=== PATIENT | female | born 1955 | race Two or more races ===

== ENCOUNTER 2016-09-16 19:22 | Emergency (ER) | payer OTHER ==
[~2016-09-16] VITALS: Ht 167.6 cm; Wt 75.3 kg
--- NOTE | 2016-09-16 20:20 | NUR ---
PT PRESENTED TO THE ER WITH A C/O RLE/RT ANKLE EDEMA. PT IS ALOS C/O THAT HER BUE HAND WERE SWOLLEN TOO. PT HAD TO REMOVE ALL HER RINGS. PT STATED THE SHE HAS SOME DISCOMFORT DOWN THE RT ARM.
--- NOTE | 2016-09-16 21:26 | NUR ---
CALLED RADIOLOGY RE: VENOUS DUPLEX. TECH IS ON HER WAY.
[2016-09-16 22:29] VITALS: BP 160/82
== END 2016-09-16 22:29 | disposition home or self-care (01) ==
LOC: ER 19:22
DX: I80.3 Phlebitis and thrombophlebitis of lower extremities, unspecified (principal); I83.91 Asymptomatic varicose veins of right lower extremity; E03.9 Hypothyroidism, unspecified; I10 Essential (primary) hypertension; E11.9 Type 2 diabetes mellitus without complications; I25.2 Old myocardial infarction; Z86.73 Personal history of transient ischemic attack (TIA), and cerebral infarction without residual deficits
CPT/HCPCS: 93971-TC; A4606; Z7610

== ENCOUNTER 2016-09-19 05:19 | Inpatient (IN) | payer OTHER ==
[~2016-09-19] VITALS: Ht 152.4 cm; Wt 77.1 kg
--- NOTE | 2016-09-19 05:25 | NUR ---
TO BED 6 A 61 YO FEMALE BIBRA#88 PT STATES SHE STARTED HVAING CP X 1 HOUR AND STATES SHE HAS COUGH FOR 3 MONTHS. PATIENT IS AAOX4, REPORTING DULL MID AND LEFT STERNAL CHEST PAIN. BREATHING EVEN AND UNLABORED. AFEBRILE. VSS. GOWNED. INITIATED COMFORT MEASURES. PENDING ER MD FINE.
[2016-09-19] MEDS ORDERED: ALBUTEROL FS 2.5 MG/3 ML VIAL.NEB ONE (05:28)
--- NOTE | 2016-09-19 05:28 | NUR ---
DR CARDOZA AT BEDSIDE FOR EVAL.
[2016-09-19] MEDS ORDERED: IPRATROPIUM NEB FS 0.5 MG/2.5 ML AMPUL.NEB ONE (05:29)
[2016-09-19] MEDS ORDERED: DEXAMETHASONE SOD PHOSPHATE 10 MG/ML VIAL IV ONE (05:30)
[2016-09-19] MEDS ORDERED: IPRATROPIUM NEB FS 0.5 MG/2.5 ML AMPUL.NEB NEB ONE (05:30)
[2016-09-19] MEDS ORDERED: ALBUTEROL FS 2.5 MG/3 ML VIAL.NEB NEB ONE (05:30)
[2016-09-19] MEDS ORDERED: DEXAMETHASONE SOD PHOSPHATE 10 MG/ML VIAL ONE (05:33)
--- NOTE | 2016-09-19 05:35 | NUR ---
started a saline lock on the lac g18, blood drawn and sent to lab.
--- NOTE | 2016-09-19 05:35 | NUR ---
butter grader at bedside for cxr.
[2016-09-19 05:43] LABS: WHITE BLOOD COUNT (AUTO) 8.1 K/uL (4.3-11.0)
[2016-09-19] MEDS ORDERED: IV NS 0.9% 250 ML IV ONE (05:43)
[2016-09-19] MEDS ORDERED: IOHEXOL-350 100 ML VIAL IV ONE (05:43)
[2016-09-19 05:44] LABS: BASOPHILS % (AUTO) 0.1 % (0.0-2.0); EOSINOPHILS # (AUTO) 0.1 /CMM (0.0-0.7); EOSINOPHILS % (AUTO) 0.7 % (0.0-6.0); HEMATOCRIT 40 % (33-45); HEMOGLOBIN 13.2 g/dL (11.5-14.8); LYMPHOCYTES # (AUTO) 0.7 /CMM (0.8-4.8); LYMPHOCYTES % (AUTO) 8.9 % (20.0-44.0); MEAN CORPUSCULAR HEMOGLOBIN 29 PG (26.0-33.0); MEAN CORPUSCULAR HGB CONC 33 g/dl (31.0-36.0); MEAN CORPUSCULAR VOLUME 88 fL (82-100); MONOCYTES % (AUTO) 0.3 % (2.0-12.0); NEUTROPHILS # (AUTO) 7.3 /CMM (1.8-8.9); PLATELET COUNT (AUTO) 192 /CMM (150-450); RDW COEFFICIENT OF VARIATION 14.8 (11.5-15.0); RED BLOOD CELL COUNT(AUTO) 4.55 MIL/uL (4.0-5.2)
--- NOTE | 2016-09-19 05:44 | NUR ---
ongoing breathing treatment by rt.
[2016-09-19 05:55] LABS: CREATININE 0.9 mg/dL (0.6-1.3); POTASSIUM 3.8 mmol/L (3.5-5.1)
[2016-09-19 05:58] LABS: INR 0.89 (0.87-1.13); PROTHROMBIN TIME 9.5 SECS (9.5-12.7)
--- NOTE | 2016-09-19 06:08 | NUR ---
patient to ct.
--- NOTE | 2016-09-19 07:18 | NUR ---
Endorsed to Cali JIMÉNEZ for abisai.
[2016-09-19] MEDS ORDERED: METF500T4 PO (07:21)
[2016-09-19] MEDS ORDERED: ATOR40TA PO (07:21)
[2016-09-19] MEDS ORDERED: RIVA10TA PO (07:21)
[2016-09-19] MEDS ORDERED: VALS160T2 PO (07:21)
[2016-09-19] MEDS ORDERED: LEVO75TA7 PO (07:21)
[2016-09-19] MEDS ORDERED: METO-306 PO (07:21)
--- NOTE | 2016-09-19 08:08 | NUR ---
REPORT GIVEN TO GARRY JIMÉNEZ FOR JAMAAL
[2016-09-19] MEDS ORDERED: ASPIRIN 81 MG TAB.CHEW ONE (08:29)
[2016-09-19] MEDS ORDERED: NITROGLYCERIN PACKET 1 GM PACKET ONE (08:29)
[2016-09-19] MEDS ORDERED: NITROGLYCERIN PACKET 1 GM PACKET TD ONE (08:30)
[2016-09-19] MEDS ORDERED: ASPIRIN 81 MG TAB.CHEW PO ONE (08:30)
--- NOTE | 2016-09-19 08:48 | NUR ---
PARCEL POST CLERK NOTES PATIENT RECEIVED FROM E.R. DEPARTMENT VIA [facility], UNDER THE CARE OF DR. ALCANTARA, FOR CHEST PAIN, IN STABLE CONDITION, ALERT AND ORIENTED, DENIES CHEST PAIN AT THIS TIME, SKIN INTACT, ASSESSMENT DONE, ENSURE SAFETY AND COMFORT, NEEDS ATTENDED, CALL LIGHT WITHIN REACH, WILL CONTINUE TO MONITOR.
[2016-09-19 09:00] VITALS: BP 144/101
[2016-09-19] MEDS ORDERED: ZOLPIDEM TARTRATE 5 MG TABLET PO PRN (09:00)
[2016-09-19] MEDS ORDERED: ACETAMINOPHEN ES 500 MG TABLET PO PRN (09:00)
[2016-09-19] MEDS ORDERED: DEXTROSE 50%-WATER 50 ML DISP.SYRIN IV PRN (09:00)
[2016-09-19] MEDS ORDERED: HYDROCODONE/APAP 5/325MG 1 EACH TABLET PO PRN (09:00)
[2016-09-19] MEDS ORDERED: CLONIDINE HCL 0.1 MG TABLET PO PRN (09:00)
[2016-09-19] MEDS: METFORMIN 500 MG TABLET PO SCH ×2 (10:02→17:08)
[2016-09-19] MEDS: ATORVASTATIN 40 MG TABLET PO SCH (10:02)
[2016-09-19] MEDS: VALSARTAN 80 MG TABLET PO SCH (10:02)
[2016-09-19] MEDS: METOPROLOL SUCCINATE 50 MG TAB.SR.24H PO SCH (10:02)
[2016-09-19] MEDS: LEVOTHYROXINE SODIUM 75 MCG TABLET PO SCH (10:02)
[2016-09-19] MEDS: BLOOD SUGAR DIAGNOSTIC 1 EACH STRIP VI SCH ×4 (10:03→21:48)
[2016-09-19] MEDS: INSULIN REGULAR, HUMAN 100 UNIT/ML 3 ML VIAL SQ PRN ×3 (10:23→17:08)
[2016-09-19] MEDS ORDERED: VALSARTAN 80 MG TABLET PO SCH (11:30)
[2016-09-19 12:00] VITALS: BP 138/70
[2016-09-19 13:58] LABS: APPEARANCE,URINE CLEAR (CLEAR); BILIRUBIN,URINE NEGATIVE (NEGATIVE); BLOOD, URINE 1+ Ery/uL (NEGATIVE); COLOR,URINE YELLOW (YELLOW); KETONES,URINE NEGATIVE (NEGATIVE); LEUKOCYTE ESTERASE ,URINE NEGATIVE (NEGATIVE); NITRITE, URINE NEGATIVE (NEGATIVE); PROTEIN,URINE NEGATIVE (NEGATIVE); UGLUCOSE NEGATIVE (NEGATIVE); UROBILINOGEN,URINE 0.2 EU/dL (0.2)
[2016-09-19 14:16] LABS: BACTERIA,URINE None seen /HPF (None Seen); SQUAMOUS EPITHELIAL CELL,UR Few /HPF (None Seen); WBC,URINE NONE SEEN /HPF (0-3)
[2016-09-19 16:00] VITALS: BP 140/76
[2016-09-19] MEDS ORDERED: RIVAROXABAN 10 MG TABLET PO SCH (17:00)
--- NOTE | 2016-09-19 18:47 | NUR ---
ELECTRIC RAZOR ASSEMBLER NOTES PATIENT IN BED, NO FURTHER COMPLAINT OF CHEST PAIN, NO DISTRESS NOTED, PATIENT WILL HAVE A STRESS TEST TOMORROW, INSTRUCTED NOT TO DRINK TEA OR CAFFEINE AFTER DINNER, AND WILL BE NPO AFTER MIDNIGHT, NO S/SX OF HYPO OR HYPERGLYCEMIA AT THIS TIME, ATE DINNER AND TOLERATED WELL, RECEIVED ASSISTANCE WITH ADLS, SAFETY MEASURES IN PLACED, CALL LIGHT WITHIN REACH, WILL ENDORSE TO PAINTER DRUM FOR JAMAAL.
--- NOTE | 2016-09-19 19:20 | NUR ---
TELE/RN OPENING NOTES PT AWAKE,SITTING UP IN BED. A/OX4, [place]EN[place] SPEAKING BUT DOES UNDERSTAND TURKISH. ON ROOM AIR, BREATHING EVEN AND UNLABORED. NO S/S OF DISTRESS NOTED. DENIES CHEST PAIN AND SOB AT THIS TIME. ON TELE MONITOR READING SINUS RHYTHM WITH HEART RATE AT 72. PT TO HAVE LEXISCAN IN THE MORNING, CONSENT SIGNED AND FLAGGED IN THE CHART. PT AWARE ABOUT NPO STATUS POST MIDNIGHT AND NO CAFFEINE/TEA THIS EVENING. BED IN LOW/LOCKED POSITION WITH CALL LIGHT IN REACH. BED RAILS UPX2. WILL CONTINUE TO MONITOR
[2016-09-19 20:00] VITALS: BP 138/80
[2016-09-19 20:32] VITALS: BP 138/80
[2016-09-19] MEDS: *INSULIN REGULAR(HUMULIN R)HUM 100 UNIT/ML VIAL SQ PRN (21:49)
--- NOTE | 2016-09-19 21:49 | NUR ---
TELE/RN NOTES BLOOD SUGAR 150. NO INSULIN ADMINISTERED. PT TO BE NPO POST MIDNIGHT FOR DEX IN AM
[2016-09-20] VITALS: BP 129/67
[2016-09-20 04:00] VITALS: BP 146/81
[2016-09-20 04:59] VITALS: BP 146/81
[2016-09-20] MEDS: BLOOD SUGAR DIAGNOSTIC 1 EACH STRIP VI SCH ×2 (06:33→11:56)
[2016-09-20] MEDS: LEVOTHYROXINE SODIUM 75 MCG TABLET PO SCH (06:35)
[2016-09-20] MEDS: INSULIN REGULAR, HUMAN 100 UNIT/ML 3 ML VIAL SQ PRN (06:36)
--- NOTE | 2016-09-20 06:36 | NUR ---
TELE/RN NOTES BLOOD IJKNV=[id number], NO INSULIN COVERAGE AND NON-ADMINISTERED SCHEDULED SYNTHROID. PT NPO.
--- NOTE | 2016-09-20 06:45 | NUR ---
TELE/RN CLOSING NOTES PT AWAKE, ON ROOM AIR, BREATHING EVEN AND UNLABORED. DENIES CHEST PAIN. NO COMPLAINTS OF SOB OR DISTRESS NOTED. ON TELE MONITOR, SINUS RHYTHM WITH HR AT 69. IV TO TO LAC PATENT AND INTACT, FLUSHES WELL. PT NPO FOR LEXISCAN THIS AM. BED IN LOW/LOCKED POSITION, CALL LIGHT IN REACH. BED RAILS UP. MADE PT COMFORTABLE, ALL NEEDS MET AND ATTENDED. WILL ENDORSE TO AM SHIFT JAMAAL.
[2016-09-20 06:57] VITALS: BP 153/85
[2016-09-20 07:08] LABS: CHOLESTEROL 210 mg/dL (<200); HDL CHOLESTEROL 86 mg/dL (40-60); LDL 109 mg/dL (0-99); TRIGLYCERIDES 94 mg/dL (30-150)
--- NOTE | 2016-09-20 07:25 | NUR ---
RN OPEN NOTES RECEIVED REPORT FROM PRODUCTION RECOVERY OPERATOR NURSE. WILL CONTINUE TO MONITOR AND ASSESS PATIENT
[2016-09-20] MEDS ORDERED: REGADENOSON 0.4 MG/5 ML DISP.SYRIN IVP ONE (08:00)
--- NOTE | 2016-09-20 08:40 | NUR ---
PATIENT LEFT THE FLOOR FOR STRESS TEST
[2016-09-20] MEDS: VALSARTAN 80 MG TABLET PO SCH (09:00)
[2016-09-20] MEDS: ATORVASTATIN 40 MG TABLET PO SCH (10:17)
[2016-09-20] MEDS: METOPROLOL SUCCINATE 50 MG TAB.SR.24H PO SCH (10:17)
[2016-09-20] MEDS: METFORMIN 500 MG TABLET PO SCH (10:17)
[2016-09-20 12:00] VITALS: BP 154/59
[2016-09-20] MEDS: *INSULIN REGULAR(HUMULIN R)HUM 100 UNIT/ML VIAL SQ PRN (12:20)
--- NOTE | 2016-09-20 14:26 | NUR ---
PROCESS TREATER NOTES PATIENT DISCHARGE ORDERS RECEIVED FROM DR ALCANTARA AND CARRIED OUT. PATIENT RECEIVED ALL DISCHARGE INFORMATION AND EDUCATION AND ALLOW TIME TO ASK QUESTIONS. PATIENT STARTED THAT SHE HAS NO CONCERNS REGARDING DISCHARGE. NO SIGNS AND SYMPTOMS OF DISTRESS AT TIME OF DISCHARGE. DENIED PAIN. ALL PERSONAL BELONGING WITH PATIENT AT TIME OF DISCHARGE. CONTINUE HOME MEDICATION AND NO NEW PRESCRIPTION. IV SITE REMOVED. ID BAND REMOVED. PATIENT WAS ESCORTED TO MAIN LOBBY WITH AN RN AND TRANSPORTED HOME VIA A TAXI VOUCHER PROVIDED AND PAID BY [facility].
== END 2016-09-20 14:20 | disposition home or self-care (01) | DRG 198 ==
LOC: ER 05:20 → TELE 08:31
PROVIDERS: ADMIT Internal Medicine; ATTEND Internal Medicine
DX: R07.89 Other chest pain (principal); I25.2 Old myocardial infarction; E66.01 Morbid (severe) obesity due to excess calories; I10 Essential (primary) hypertension; E03.9 Hypothyroidism, unspecified; E11.9 Type 2 diabetes mellitus without complications; E78.5 Hyperlipidemia, unspecified; I25.10 Atherosclerotic heart disease of native coronary artery without angina pectoris; F17.201 Nicotine dependence, unspecified, in remission; Z86.73 Personal history of transient ischemic attack (TIA), and cerebral infarction without residual deficits; Z68.33 Body mass index [BMI] 33.0-33.9, adult; F17.210 Nicotine dependence, cigarettes, uncomplicated; Z79.84 Long term (current) use of oral hypoglycemic drugs; Z82.49 Family history of ischemic heart disease and other diseases of the circulatory system; Z83.3 Family history of diabetes mellitus
CPT/HCPCS: 36415; 71010-TC; 80048-TC; 80061-TC; 81000-TC; 82962-TC; 84443-TC; 84484-TC; 85025-TC; 85730-TC; 87081-TC; 93307-TC; A4606; A9502; J1100; J1815; J2785; J7050; Q9967; Z7610

== ENCOUNTER 2016-12-05 12:08 | Emergency (ER) | payer OTHER ==
[~2016-12-05] VITALS: Ht 152.4 cm; Wt 70.3 kg
[~2016-12-05 12:08] MED LIST: ATOR40TA PO; LEVO75TA7 PO; METF500T4 PO; METO-306 PO; RIVA10TA PO; VALS160T2 PO
--- NOTE | 2016-12-05 12:23 | NUR ---
PT TO ED ROOM 06: R LOWER BACK PAIN RADIATING DOWN R LEG X 10 DAYS, DENIES ANY INJURY. A/A/O. NAD. VS WNL. AMBULATORY WITH STEADY GAIT.
--- NOTE | 2016-12-05 12:34 | NUR ---
SEEN BY ED PROVIDER
--- NOTE | 2016-12-05 13:02 | NUR ---
Patient discharged to home in stable condition. Written and verbal after care instructions given. Patient verbalizes understanding of instruction. ambulatory with a steady gait.
[2016-12-05 13:04] VITALS: BP 167/88
== END 2016-12-05 13:05 | disposition home or self-care (01) ==
LOC: ER 12:10
DX: M54.5 Low back pain (principal); E03.9 Hypothyroidism, unspecified; E11.9 Type 2 diabetes mellitus without complications; I11.0 Hypertensive heart disease with heart failure; I50.9 Heart failure, unspecified; Z79.01 Long term (current) use of anticoagulants; Z86.73 Personal history of transient ischemic attack (TIA), and cerebral infarction without residual deficits; Z90.710 Acquired absence of both cervix and uterus
CPT/HCPCS: A4606; Z7610

== ENCOUNTER 2017-04-05 23:54 | Emergency (ER) | payer OTHER ==
[~2017-04-05] VITALS: Ht 165.1 cm; Wt 61.2 kg
--- NOTE | 2017-04-06 00:03 | NUR ---
TO BED 3 BIB PARAMEDICS C/O CHRONIC BACK PAIN X6 MONTHS. PT AAOX4 NO ACUTE DISTRESS NOTED, RESP EVEN AND UNLABORED. PENDING ER MD FINE.
--- NOTE | 2017-04-06 00:04 | NUR ---
MYLES SUGAR TRUCKER AT BEDSIDE TO BABATUNDE BOSCH.
[2017-04-06] MEDS ORDERED: MORPHINE SULFATE INJ 4 MG/ML DISP.SYRIN ONE (00:15)
[2017-04-06] MEDS ORDERED: ONDANSETRON 4 MG TAB.RAPDIS ONE (00:15)
--- NOTE | 2017-04-06 00:19 | NUR ---
PT MEDICATED ORDERED.
[2017-04-06] MEDS ORDERED: MORPHINE SULFATE INJ 2 MG/ML DISP.SYRIN IM ONE (00:30)
[2017-04-06] MEDS ORDERED: ONDANSETRON 4 MG TAB.RAPDIS SL ONE (00:30)
[2017-04-06] MEDS ORDERED: HYDROCODONE/APAP 10/325MG 1 EA TABLET ONE (00:52)
[2017-04-06] MEDS ORDERED: HYDROCODONE/APAP 10/325MG 1 EA TABLET PO ONE (01:00)
--- NOTE | 2017-04-06 01:06 | NUR ---
MYLES SHOT HOLE SHOOTER AT BEDSIDE TO RE-EVAL PT.
--- NOTE | 2017-04-06 01:19 | NUR ---
Patient discharged to home in stable condition. Written and verbal after care instructions given. Patient verbalizes understanding of instruction. ambulatory with a steady gait noted. pt aaox4 no acute distress noted, resp even and unlabored. advice pt not to drive or operate any machinery due to pt was given narcotic medicine. pt verbalize understanding.
[2017-04-06 01:20] VITALS: BP 149/92
== END 2017-04-06 01:21 | disposition home or self-care (01) ==
LOC: ER 23:57
DX: M54.5 Low back pain (principal); G89.29 Other chronic pain; M79.661 Pain in right lower leg; I11.0 Hypertensive heart disease with heart failure; I50.9 Heart failure, unspecified; I25.2 Old myocardial infarction; E11.9 Type 2 diabetes mellitus without complications; Z86.73 Personal history of transient ischemic attack (TIA), and cerebral infarction without residual deficits; Z90.710 Acquired absence of both cervix and uterus; Z79.84 Long term (current) use of oral hypoglycemic drugs
CPT/HCPCS: 96372; 99283; A4606; J2270; Q0162; Z7610

== ENCOUNTER 2018-07-14 06:32 | Emergency (ER) | payer OTHER ==
[~2018-07-14] VITALS: Ht 157.5 cm; Wt 81.6 kg
[~2018-07-14 06:32] MED LIST changes: +METF-440 PO; -METF500T4 PO; -METO-306 PO; +METO-358 PO
--- NOTE | 2018-07-14 06:36 | NUR ---
PT [id number] FROM HOME C/C EPIGASTRIC PAIN X 2 HOURS, DENIES N/V/D. PT STATES "MY BLOOD PRESSURE HAS BEEN GOING UP AND DOWN". PT AOX4. NAD NOTED. PT ON MONITOR IN BED 10. WILL CONTINUE TO MONITOR.
--- NOTE | 2018-07-14 06:45 | NUR ---
AT BEDSIDE FOR EVAL
[2018-07-14] MEDS ORDERED: ONDANSETRON HCL/PF 4 MG/2 ML VIAL IVP ONE (07:00)
[2018-07-14] MEDS ORDERED: IV NS 0.9% 1,000 ML BAG IV ONE (07:00)
[2018-07-14] MEDS ORDERED: MAG HYDROX/AL HYDROX/SIMETH 30 ML UDC PO ONE (07:00)
[2018-07-14] MEDS ORDERED: FAMOTIDINE/PF INJ 20 MG/2 ML VIAL IV ONE ×2 (07:00→07:04)
[2018-07-14] MEDS ORDERED: MAG HYDROX/AL HYDROX/SIMETH 30 ML UDC ONE (07:04)
[2018-07-14] MEDS ORDERED: ONDANSETRON HCL/PF 4 MG/2 ML VIAL ONE (07:04)
[2018-07-14 07:05] LABS: BASOPHILS % (AUTO) 0.7 % (0.0-2.0); EOSINOPHILS % (AUTO) 1.4 % (0.0-6.0); HEMATOCRIT 40 % (33-45); HEMOGLOBIN 13.6 g/dL (11.5-14.8); LYMPHOCYTES # (AUTO) 1.1 /CMM (0.8-4.8); LYMPHOCYTES % (AUTO) 17.5 % (20.0-44.0); MEAN CORPUSCULAR HGB CONC 34 g/dl (31.0-36.0); MEAN CORPUSCULAR VOLUME 89 fL (82-100); MONOCYTES # (AUTO) 0.5 /CMM (0.1-1.30); MONOCYTES % (AUTO) 7.9 % (2.0-12.0); NEUTROPHILS # (AUTO) 4.6 /CMM (1.8-8.9); NEUTROPHILS % (AUTO) 72.5 % (43.0-81.0); PLATELET COUNT (AUTO) 229 /CMM (150-450); RED BLOOD CELL COUNT(AUTO) 4.42 MIL/uL (4.0-5.2); WHITE BLOOD COUNT (AUTO) 6.4 K/uL (4.3-11.0)
[2018-07-14 07:16] LABS: CALCIUM, SERUM 9.6 mg/dL (8.5-10.1); CARBON DIOXIDE 27 mmol/L (21-32); CHLORIDE 102 mmol/L (98-107); CREATININE 1.1 mg/dL (0.6-1.3); GLUCOSE 109 mg/dL (74-106); POTASSIUM 3.6 mmol/L (3.5-5.1); SODIUM SERUM 139 mmol/L (136-145); UREA NITROGEN, BLOOD 20 mg/dL (7-18)
[2018-07-14 07:23] LABS: ALANINE AMINOTRANSFERASE 29 U/L (12-78); ALBUMIN 3.9 g/dL (3.4-5.0); ALKALINE PHOSPHATASE 81 U/L (46-116); ASPARTATE AMINOTRANSFERASE 11 U/L (15-37); BILIRUBIN,DIRECT 0.1 mg/dL (0.0-0.2); BILIRUBIN,TOTAL 0.6 mg/dL (0.2-1.0); LIPASE 303 U/L (73-393); TOTAL PROTEIN, SERUM 7.9 g/dL (6.4-8.2)
--- NOTE | 2018-07-14 07:25 | NUR ---
REPORT GIVEN TO ANTONIO QUINN RN FOR JAMAAL
--- NOTE | 2018-07-14 07:29 | NUR ---
REPORT RECEIVED FROM JESSY MCCAIN FOR JAMAAL. PT IS AAOX4, NOT IN RESPRATORY DISTRESS, V/S STABLE. WILL CONTINUE TO MONITOR.
--- NOTE | 2018-07-14 07:44 | NUR ---
ERGONOMIST AT BEDSIDE FOR XRAY.
--- NOTE | 2018-07-14 08:24 | NUR ---
REPEAT TROPONIN AT 10AM PER DR. SHAH.
[2018-07-14 08:56] LABS: APPEARANCE,URINE Clear (CLEAR); BILIRUBIN,URINE Negative (NEGATIVE); BLOOD, URINE Trace-lysed Ery/uL (NEGATIVE); COLOR,URINE Yellow (YELLOW); KETONES,URINE Negative (NEGATIVE); LEUKOCYTE ESTERASE ,URINE Negative (NEGATIVE); NITRITE, URINE Negative (NEGATIVE); PH,URINE 5.5 (5.0-8.0); PROTEIN,URINE Negative (NEGATIVE); UGLUCOSE Negative (NEGATIVE); UROBILINOGEN,URINE 0.2 EU/dL (0.2)
[2018-07-14 08:59] LABS: BACTERIA,URINE Rare /HPF (None Seen); RBC,URINE 0-2 /HPF (0-2); SQUAMOUS EPITHELIAL CELL,UR Many /HPF (None Seen); WBC,URINE NONE SEEN /HPF (0-3)
--- NOTE | 2018-07-14 10:03 | NUR ---
REPEAT TROPONIN DONE. AWAITING RESULT.
[2018-07-14 10:50] VITALS: BP 153/91
--- NOTE | 2018-07-14 10:50 | NUR ---
IV removed. Catheter intact and site benign. Pressure and 4x4 applied to site. No bleeding noted. Patient discharged to home in stable condition. Written and verbal after care instructions given. Patient verbalizes understanding of instruction.
== END 2018-07-14 10:52 | disposition home or self-care (01) ==
LOC: ER 06:45
DX: R10.13 Epigastric pain (principal); R11.0 Nausea; I11.0 Hypertensive heart disease with heart failure; I50.9 Heart failure, unspecified; I25.10 Atherosclerotic heart disease of native coronary artery without angina pectoris; I21.9 Acute myocardial infarction, unspecified; E11.9 Type 2 diabetes mellitus without complications; I25.2 Old myocardial infarction; G89.29 Other chronic pain; M54.9 Dorsalgia, unspecified; E03.9 Hypothyroidism, unspecified; Z86.718 Personal history of other venous thrombosis and embolism; Z86.73 Personal history of transient ischemic attack (TIA), and cerebral infarction without residual deficits; Z90.710 Acquired absence of both cervix and uterus; Z98.890 Other specified postprocedural states
CPT/HCPCS: 36415; 71045; 80048; 80076; 81001; 83690; 84484 ×2; 85025; 85730; 93005; 96374; 96375; 99284; A4606; J2405; J3490; J7030; 81000-TC

== ENCOUNTER 2018-08-04 10:17 | Emergency (ER) | payer OTHER ==
[~2018-08-04] VITALS: Ht 162.6 cm; Wt 78.9 kg
--- NOTE | 2018-08-04 10:19 | NUR ---
DENNIS Gooden FROM HOME, C/O FEVER AND CHILLS, TEMP AUPON ARRIVAL IN ED 98.4, TO ER BED 12, HOOKED TO MONITOR, CHANGED TO GOWN, AWAITING MD FINE.
--- NOTE | 2018-08-04 10:27 | NUR ---
DR TAYLOR AT BEDSIDE
[2018-08-04] MEDS ORDERED: LORAZEPAM 1 MG TABLET ONE (10:35)
[2018-08-04 10:37] LABS: BASOPHILS % (AUTO) 0.2 % (0.0-2.0); EOSINOPHILS % (AUTO) 0.4 % (0.0-6.0); HEMATOCRIT 41 % (33-45); HEMOGLOBIN 14.1 g/dL (11.5-14.8); LYMPHOCYTES # (AUTO) 0.7 /CMM (0.8-4.8); MEAN CORPUSCULAR HGB CONC 34 g/dl (31.0-36.0); MEAN CORPUSCULAR VOLUME 91 fL (82-100); MONOCYTES # (AUTO) 0.1 /CMM (0.1-1.30); NEUTROPHILS # (AUTO) 8.8 /CMM (1.8-8.9); NEUTROPHILS % (AUTO) 91.4 % (43.0-81.0); PLATELET COUNT (AUTO) 188 /CMM (150-450); RED BLOOD CELL COUNT(AUTO) 4.54 MIL/uL (4.0-5.2); WHITE BLOOD COUNT (AUTO) 9.7 K/uL (4.3-11.0)
[2018-08-04] MEDS ORDERED: LOSA1TAB39 PO (10:40)
[2018-08-04] MEDS ORDERED: LEVO100T9 PO (10:40)
[2018-08-04 10:45] LABS: CALCIUM, SERUM 9.7 mg/dL (8.5-10.1); CARBON DIOXIDE 27 mmol/L (21-32); CHLORIDE 101 mmol/L (98-107); CREATININE 1.1 mg/dL (0.6-1.3); GLUCOSE 98 mg/dL (74-106); POTASSIUM 3.8 mmol/L (3.5-5.1); SODIUM SERUM 138 mmol/L (136-145); UREA NITROGEN, BLOOD 17 mg/dL (7-18)
--- NOTE | 2018-08-04 10:50 | NUR ---
VOICE NETWORK ENGINEER AT BEDSIDE
[2018-08-04] MEDS ORDERED: LORAZEPAM 1 MG TABLET PO ONE (11:00)
[2018-08-04] MEDS ORDERED: ACETAMINOPHEN ES 500 MG TABLET PO ONE (12:00)
[2018-08-04] MEDS ORDERED: IBUPROFEN 600 MG TABLET PO ONE ×2 (12:00→12:05)
--- NOTE | 2018-08-04 12:06 | NUR ---
PT IN BED COMFORTABLE, HOOKED TO MONITOR, VSS, KEPT SAFE AND WARM.
[2018-08-04] MEDS ORDERED: ACETAMINOPHEN ES 500 MG TABLET ONE (12:07)
--- NOTE | 2018-08-04 13:12 | NUR ---
PROVIDED PT WITH SANDWICH AND WATER. TOLERATING PO WELL.
--- NOTE | 2018-08-04 14:52 | NUR ---
AWAITING 2ND TROPONIN RESULTS
--- NOTE | 2018-08-04 15:20 | NUR ---
IV removed. Catheter intact and site benign. Pressure and 4x4 applied to site. No bleeding noted.Patient discharged to home in stable condition. Written and verbal after care instructions given. Patient verbalizes understanding of instruction.
[2018-08-04 16:26] VITALS: BP 127/81
== END 2018-08-04 15:20 | disposition home or self-care (01) ==
LOC: ER 10:19
DX: R07.89 Other chest pain (principal); E11.9 Type 2 diabetes mellitus without complications; F17.200 Nicotine dependence, unspecified, uncomplicated; I11.0 Hypertensive heart disease with heart failure; I50.9 Heart failure, unspecified; I25.2 Old myocardial infarction; G89.29 Other chronic pain; M54.9 Dorsalgia, unspecified; E03.9 Hypothyroidism, unspecified; E66.9 Obesity, unspecified; Z90.710 Acquired absence of both cervix and uterus; Z86.73 Personal history of transient ischemic attack (TIA), and cerebral infarction without residual deficits; Z86.718 Personal history of other venous thrombosis and embolism
CPT/HCPCS: 36415; 71045-TC; 80048-TC; 84484-TC; 85025-TC

== ENCOUNTER 2018-09-09 09:08 | Emergency (ER) | payer OTHER ==
[~2018-09-09] VITALS: Ht 154.9 cm; Wt 77.6 kg
[~2018-09-09 09:08] MED LIST changes: +LEVO100T9 PO; -LEVO75TA7 PO; +LOSA1TAB39 PO; -VALS160T2 PO
--- NOTE | 2018-09-09 09:21 | NUR ---
DR MAHER AT BEDSIDE FOR EVAL.
[2018-09-09] MEDS ORDERED: IV NS 0.9% 500 ML BAG IV ONE (09:30)
[2018-09-09] MEDS ORDERED: hydrALAZINE HCL IV 20 MG VIAL IV ONE (09:30)
[2018-09-09 09:33] LABS: CARBON DIOXIDE 29 mmol/L (21-32); CHLORIDE 105 mmol/L (98-107); GLUCOSE 140 mg/dL (74-106); POTASSIUM 3.6 mmol/L (3.5-5.1); SODIUM SERUM 142 mmol/L (136-145); UREA NITROGEN, BLOOD 23 mg/dL (7-18)
[2018-09-09 09:34] LABS: CALCIUM, SERUM 9.1 mg/dL (8.5-10.1)
[2018-09-09] MEDS ORDERED: GABA-534 PO (09:36)
[2018-09-09] MEDS ORDERED: NAPR-1009 PO (09:36)
[2018-09-09] MEDS ORDERED: hydrALAZINE HCL IV 20 MG VIAL ONE (09:37)
[2018-09-09 09:40] LABS: BASOPHILS % (AUTO) 1.4 % (0.0-2.0); EOSINOPHILS % (AUTO) 1.5 % (0.0-6.0); HEMATOCRIT 39 % (33-45); HEMOGLOBIN 13.4 g/dL (11.5-14.8); LYMPHOCYTES # (AUTO) 1.2 /CMM (0.8-4.8); LYMPHOCYTES % (AUTO) 46.8 % (20.0-44.0); MEAN CORPUSCULAR HGB CONC 34 g/dl (31.0-36.0); MEAN CORPUSCULAR VOLUME 91 fL (82-100); MONOCYTES % (AUTO) 0.8 % (2.0-12.0); NEUTROPHILS # (AUTO) 1.3 /CMM (1.8-8.9); NEUTROPHILS % (AUTO) 49.5 % (43.0-81.0); PLATELET COUNT (AUTO) 178 /CMM (150-450); RED BLOOD CELL COUNT(AUTO) 4.34 MIL/uL (4.0-5.2); WHITE BLOOD COUNT (AUTO) 2.6 K/uL (4.3-11.0)
[2018-09-09] MEDS ORDERED: METOCLOPRAMIDE HCL 10 MG/2 ML VIAL ONE (09:57)
--- NOTE | 2018-09-09 09:57 | NUR ---
PT IS STILL C/O SEVERE HEADACHE, GENERALIZED SPASMS. DR THOMPSON AWARE.
[2018-09-09] MEDS ORDERED: ONDANSETRON HCL/PF - ER 4 MG/2 ML VIAL IV ONE (10:00)
[2018-09-09] MEDS ORDERED: METOCLOPRAMIDE HCL 10 MG/2 ML VIAL IV ONE (10:00)
--- NOTE | 2018-09-09 10:03 | NUR ---
PT TO RADIOLOGY FOR HEAD CT SCAN VIA [facility].
[2018-09-09 10:59] LABS: APPEARANCE,URINE Clear (CLEAR); BILIRUBIN,URINE Negative (NEGATIVE); BLOOD, URINE Negative Ery/uL (NEGATIVE); COLOR,URINE Yellow (YELLOW); KETONES,URINE Negative (NEGATIVE); LEUKOCYTE ESTERASE ,URINE Negative (NEGATIVE); NITRITE, URINE Negative (NEGATIVE); PH,URINE 6.5 (5.0-8.0); PROTEIN,URINE Negative (NEGATIVE); UGLUCOSE Negative (NEGATIVE); UROBILINOGEN,URINE 0.2 EU/dL (0.2)
[2018-09-09] MEDS ORDERED: MECLIZINE HCL 12.5 MG TABLET PO ONE (11:30)
[2018-09-09] MEDS ORDERED: MECLIZINE HCL 25 MG TABLET ONE (11:39)
--- NOTE | 2018-09-09 11:41 | NUR ---
PT STILL C/O DIZZINESS. DR THOMPSON MADE AWARE. MEDICATED ORDERED. SEE EMAR.
--- NOTE | 2018-09-09 12:32 | NUR ---
SPOKE TO CINTHIA ABOUT TRANSPORT INFO. SHE INFORMED ME THAT WE ARE WAITING FOR A BED AT [facility] [place]. HER DIRECT # [phone]
--- NOTE | 2018-09-09 14:02 | NUR ---
[facility] CALLED WITH TRANSFER INFORMATION. PT GOING TO [facility] [address]. GIVE REPORT TO [phone] TO THE CHARGE NURSE
--- NOTE | 2018-09-09 14:28 | NUR ---
CINTHIA ESPARZA ([phone]) CALLED BACK RE: TRANSPORTATION. RADIATION PROTECTION SPECIALIST TIME WITH [facility] AT 1630. TRIP#[id number]. PRIMARY NURSE AWARE.
--- NOTE | 2018-09-09 15:42 | NUR ---
REPORT GIVEN TO SUSANA JIMÉNEZ AT [facility] AWAITING TRASPORT.
--- NOTE | 2018-09-09 16:25 | NUR ---
PT INSISTING NOT TO BE TRANSFERED. STATES SHE WOULD JUST GO HOME. NURSING SUP, YASMIN WAS AT BEDSIDE TALKING TO PT ABOUT RISK OF LEAVING AGAINST [facility]. PT AGREED. AMA FORM SIGNED. PT STATES SON WILL CALL A TAXI FOR HER TO GO HOME. DISCHARGE HOME. IVHL DISCONTINUED.
[2018-09-09 16:29] VITALS: BP 145/97
== END 2018-09-09 16:30 | disposition left against medical advice (07) ==
LOC: ER 09:08
DX: R55 Syncope and collapse (principal); R51 Headache; R42 Dizziness and giddiness; R07.89 Other chest pain; I25.2 Old myocardial infarction; I11.0 Hypertensive heart disease with heart failure; I50.9 Heart failure, unspecified; E11.9 Type 2 diabetes mellitus without complications; G89.29 Other chronic pain; F17.200 Nicotine dependence, unspecified, uncomplicated; E03.9 Hypothyroidism, unspecified; Z86.73 Personal history of transient ischemic attack (TIA), and cerebral infarction without residual deficits; Z86.718 Personal history of other venous thrombosis and embolism; Z90.710 Acquired absence of both cervix and uterus; Z79.84 Long term (current) use of oral hypoglycemic drugs; Z79.899 Other long term (current) drug therapy
CPT/HCPCS: 36415; 70450; 71045; 80048; 81001; 84484; 85025; 87081; 93005; 96374; 96375; 99284; A4216; J0360; J2405; J2765; J7040; J8597; 81000-TC